=== PATIENT | female | born 1995 | race Caucasian/White ===

== ENCOUNTER 2024-04-29 11:01 | Emergency (ER) | payer OTHER ==
[2024-04-29 11:08] VITALS: BP 124/79; PULSE 81; RESP 18; TEMP 98.1; BMI 18.8
[2024-04-29 12:34] LABS: BASO % 0.8 % (0-2.0); HEMATOCRIT 37.5 % (32.4-45.2); LYMPH % 34.4 % (8-40); MCH 26.8 pg (25.7-33.7); MEAN CELL VOLUME 83.7 fl (80-96); MEAN PLT VOLUME 9.5 fl (7.5-11.1); NEUT % 54.8 % (42.8-82.8); PLATELET COUNT 166 10^3/uL (134-434); RBC 4.48 M/mm3 (3.60-5.2); RDW 15.5 % (11.6-15.6); WHITE BLOOD COUNT 7.1 K/mm3 (4.0-10.0)
[2024-04-29 12:46] LABS: EPI CELLS 24 /uL (0-25.1); HCG,QUALITATIVE URINE Negative; HYALINE CASTS 1 /uL (0-3.1); PH,URINE 5.5 (5.0-8.0); URINE APPEARANCE CLEAR; URINE BACTERIA 435 /uL (0-1359); URINE BILIRUBIN NEGATIVE (NEGATIVE); URINE COLOR YELLOW; URINE GLUCOSE (UA) NEGATIVE (NEGATIVE); URINE KETONE NEGATIVE (NEGATIVE); URINE LEUK ESTERASE TRACE (NEGATIVE); URINE NITRITE NEGATIVE (NEGATIVE); URINE PROTEIN NEGATIVE (NEGATIVE); URINE RBC 11 /uL (0-23.9); URINE UROBILINOGEN 0.2 mg/dL (0.2-1.0); URINE WBC 32 /uL (0-25.8)
[2024-04-29 13:16] LABS: POTASSIUM 3.9 mmol/L (3.5-5.1)
[2024-04-29 13:18] LABS: ALBUMIN 4.3 g/dl (3.4-5.0); BLOOD UREA NITROGEN 13.6 mg/dL (7-18); CALCIUM 9.2 mg/dL (8.5-10.1)
[2024-04-29 13:21] LABS: CREATININE 0.7 mg/dL (0.55-1.3)
[2024-04-29 13:22] LABS: BILIRUBIN,TOTAL 0.3 mg/dL (0.2-1); TOT PROT 7.9 g/dl (6.4-8.2)
== END 2024-04-29 15:28 | disposition home or self-care (01) ==
LOC: JER 11:01
DX: R10.31 Right lower quadrant pain (principal); R11.0 Nausea; N83.201 Unspecified ovarian cyst, right side
CPT/HCPCS: 36415; 76856-TC; 80053; 81003; 83690; 84703; 85025; 87086; 99284-25

== ENCOUNTER 2024-05-01 23:07 | Emergency (ER) | payer OTHER ==
[2024-05-01 23:14] VITALS: BP 124/77; PULSE 93; RESP 18; TEMP 99.9; BMI 18.5
== END 2024-05-02 02:00 | disposition home or self-care (01) ==
LOC: JER 23:07
DX: R07.89 Other chest pain (principal); R53.1 Weakness; R00.1 Bradycardia, unspecified; R11.0 Nausea; R42 Dizziness and giddiness
CPT/HCPCS: 93005; 93010; 99283-25